=== PATIENT | female | born 1945 | race Caucasian/White ===

== ENCOUNTER 2018-06-07 11:24 | Inpatient (IN) | payer OTHER ==
[~2018-06-07] VITALS: Ht 170.2 cm; Wt 125.6 kg
[2018-06-07 12:45] LABS: BASOPHIL (%) 0.9 % (0-1); BASOPHIL COUNT 0.1 K/uL (0-0.1); EOSINOPHIL (%) 4.9 % (0-5); EOSINOPHIL COUNT 0.3 K/uL (0-0.3); HEMOGLOBIN 12.4 G/DL (11.9-15.5); IMMATURE GRANULOCYTE (%) 0.3 % (0.0-0.7); LYMPHOCYTE (%) 20.9 % (15-42); LYMPHOCYTE COUNT 1.2 K/uL (1.0-2.8); MCH 31.2 PG (29.0-34.0); MCHC 34.4 G/DL (30.0-36.0); MCV 90.5 FL (83-99); MONOCYTE (%) 7.5 % (3-12); MONOCYTE COUNT 0.4 K/uL (0-0.8); NEUTROPHIL (%) 65.5 % (45-76); NEUTROPHIL COUNT 3.8 K/uL (1.8-6.4); PLATELET COUNT 190 K/uL (156-360); RBC DIS.WIDTH-CV 12.5 % (11.8-14.6); RBC DIS.WIDTH-SD 40.9 % (39-53); RED BLOOD COUNT 3.98 M/uL (3.80-5.20); WHITE BLOOD COUNT 5.7 K/uL (4.1-10.2)
[2018-06-07 12:54] LABS: CHLORIDE 106 mEq/L (99-109); POTASSIUM 3.7 mEq/L (3.7-5.4); SODIUM 141 mEq/L (136-147)
[2018-06-07 12:56] LABS: GLUCOSE 172 mg/dL (70-99)
[2018-06-07 13:00] LABS: CREATININE 0.9 mg/dL (0.6-1.3); GFR ESTIMATE (CALCULATED) > 59 mL/min/
[2018-06-07 13:01] LABS: UREA NITROGEN (BUN) 10 mg/dL (9-23)
[2018-06-07 13:09] LABS: TROP-I INTERPRETATION NEGATIVE; TROPONIN-I < 0.01 ng/mL (0.0-0.30)
[2018-06-07] MEDS ORDERED: COZAAR50 MG PO (16:04)
[2018-06-07] MEDS ORDERED: HYGROTON25 MG PO (16:05)
[2018-06-07] MEDS ORDERED: TENORMIN50 MG PO (16:05)
[2018-06-07] MEDS ORDERED: ZOCOR5 MG PO (16:06)
[2018-06-07] MEDS ORDERED: TRAZODONE HCL50 MG PO (16:08)
[2018-06-07] MEDS ORDERED: OMEPRAZOLE40 M1 PO (16:10)
[2018-06-07] MEDS ORDERED: LASIX40 MG PO (16:12)
[2018-06-07] MEDS ORDERED: CATAPRES0.1 MG PO (16:13)
[2018-06-07] MEDS ORDERED: FLEXERIL10 MG PO (16:14)
[2018-06-07] MEDS ORDERED: PROAIR HFA8.5 GM IH (16:15)
[2018-06-07] MEDS ORDERED: LO-DOSE ASPIRIN81 M2 PO (16:16)
[2018-06-07 17:36] VITALS: BP 148/78
[2018-06-07 19:05] VITALS: BP 133/71
[2018-06-07 23:53] VITALS: BP 125/60
[2018-06-08 03:24] VITALS: BP 125/56
[2018-06-08 06:09] LABS: BASOPHIL (%) 0.8 % (0-1); BASOPHIL COUNT 0.1 K/uL (0-0.1); EOSINOPHIL (%) 5.6 % (0-5); EOSINOPHIL COUNT 0.4 K/uL (0-0.3); HEMOGLOBIN 11.3 G/DL (11.9-15.5); IMMATURE GRANULOCYTE (%) 0.3 % (0.0-0.7); LYMPHOCYTE (%) 25.8 % (15-42); LYMPHOCYTE COUNT 1.6 K/uL (1.0-2.8); MCH 30.4 PG (29.0-34.0); MCHC 33.2 G/DL (30.0-36.0); MCV 91.4 FL (83-99); MONOCYTE (%) 11.4 % (3-12); MONOCYTE COUNT 0.7 K/uL (0-0.8); NEUTROPHIL (%) 56.1 % (45-76); NEUTROPHIL COUNT 3.5 K/uL (1.8-6.4); PLATELET COUNT 172 K/uL (156-360); RBC DIS.WIDTH-CV 12.6 % (11.8-14.6); RBC DIS.WIDTH-SD 41.4 % (39-53); RED BLOOD COUNT 3.72 M/uL (3.80-5.20); WHITE BLOOD COUNT 6.2 K/uL (4.1-10.2)
[2018-06-08 06:46] LABS: ALBUMIN 3.5 G/DL (3.2-4.8); ALKALINE PHOSPHATASE 56 IU/L (3-129); ALT (GPT) 18 IU/L (3-49); AST (GOT) 15 IU/L (2-34); CHLORIDE 106 MEQ/L (99-109); GFR ESTIMATE (CALCULATED) 58 mL/min/; GLUCOSE 166 mg/dL (70-99); SODIUM 144 MEQ/L (136-147); TOTAL BILIRUBIN 0.5 MG/DL (0.0-1.0); TOTAL PROTEIN 5.9 G/DL (6.4-8.3); UREA NITROGEN (BUN) 12 mg/dL (9-23)
[2018-06-08 07:02] LABS: POTASSIUM 4.6 MEQ/L (3.7-5.4)
[2018-06-08 08:08] VITALS: BP 139/68
[2018-06-08 09:59] LABS: HEMOGLOBIN A1c (GLYCOHEMOGLOB) 6.7 % (Below 5.7)
[2018-06-08 10:38] LABS: BILIRUBIN NEGATIVE; BLOOD NEGATIVE; COLOR YELLOW ((YELLOW)); GLUCOSE (STRIP) NEGATIVE; KETONES NEGATIVE; LEUKOCYTES NEGATIVE; NITRITE NEGATIVE; PROTEIN (STRIP) NEGATIVE; SPECIFIC GRAVITY 1.021 (1.000-1.030); UROBILINOGEN 0.2 MG/DL (0.2-1.0)
[2018-06-08 10:39] LABS: APPEARANCE CLEAR ((CLEAR)); UCUL ADDED? NO
[2018-06-08 12:55] VITALS: BP 135/65
[2018-06-08 15:49] VITALS: BP 130/86
[2018-06-08 19:37] VITALS: BP 138/93
[2018-06-09 00:15] VITALS: BP 116/55
[2018-06-09 03:31] VITALS: BP 147/80
[2018-06-09 06:56] VITALS: BP 132/57
[2018-06-09] MEDS ORDERED: ELIQUIS5 MG PO (12:47)
== END 2018-06-09 17:30 | disposition home or self-care (01) | DRG 176 ==
LOC: EME 11:24 → 5SOUTH 15:37 → EDOF 15:37 → ENRESERV 15:44 → 5SOUTH 17:16 → ENPENDDIS 06-09 14:16 → 5SOUTH 06-09 17:30
PROVIDERS: Emergency Medicine; Hospitalist; Internal Medicine Hematology & Oncology
DX: I26.99 Other pulmonary embolism without acute cor pulmonale (principal); I82.441 Acute embolism and thrombosis of right tibial vein; Z68.41 Body mass index [BMI] 40.0-44.9, adult; E11.65 Type 2 diabetes mellitus with hyperglycemia; E78.5 Hyperlipidemia, unspecified; I10 Essential (primary) hypertension; J44.9 Chronic obstructive pulmonary disease, unspecified; K21.9 Gastro-esophageal reflux disease without esophagitis; Z60.2 Problems related to living alone; E66.01 Morbid (severe) obesity due to excess calories; G89.29 Other chronic pain; Z79.01 Long term (current) use of anticoagulants; Z87.891 Personal history of nicotine dependence; Z90.710 Acquired absence of both cervix and uterus; Z90.49 Acquired absence of other specified parts of digestive tract; Z88.2 Allergy status to sulfonamides; Z79.51 Long term (current) use of inhaled steroids; Z79.84 Long term (current) use of oral hypoglycemic drugs; Z80.1 Family history of malignant neoplasm of trachea, bronchus and lung
CPT/HCPCS: 71045; 71275; 80048; 80053; 81003; 81240 90; 81241 90; 82948; 83036; 83880; 84484; 85025; 85379; 85610; 85730; 93005; 93970; 94640; 94799; 99281; 99285; J7030